=== PATIENT | female | born 1965 | race Caucasian/White ===

== ENCOUNTER 2023-06-26 20:03 | Emergency (ER) | payer MEDICARE, OTHER ==
[~2023-06-26] VITALS: Ht 168.9 cm; Wt 65.9 kg
[2023-06-26 20:06] VITALS: BP 134/76; TEMP 98.3; O2SAT 96
[2023-06-26] MEDS ORDERED: LEVO50TA5 PO (20:14)
[2023-06-26] MEDS ORDERED: OXYC-1 PO (20:14)
[2023-06-26] MEDS ORDERED: VENTAER INH (20:14)
[2023-06-26] MEDS ORDERED: ATOR40TA75 PO (20:14)
[2023-06-26] MEDS ORDERED: ADV250INH INH (20:14)
[2023-06-26] MEDS ORDERED: ZOLO100T PO (20:14)
[2023-06-26] MEDS ORDERED: methocarbamoL 750 MG TAB PO ONE (21:20)
[2023-06-26] MEDS ORDERED: METH-1165 PO (22:32)
== END 2023-06-26 22:50 | disposition home or self-care (01) ==
LOC: M ED 20:03
DX: M54.12 Radiculopathy, cervical region (principal); Z85.3 Personal history of malignant neoplasm of breast; M06.9 Rheumatoid arthritis, unspecified; M19.90 Unspecified osteoarthritis, unspecified site; F17.200 Nicotine dependence, unspecified, uncomplicated; Z79.899 Other long term (current) drug therapy; Z79.51 Long term (current) use of inhaled steroids

== ENCOUNTER → 2023-09-05 | Outpatient (CLI) | payer OTHER ==
[~2023-09-05] MED LIST: ADV250INH INH; ATOR40TA75 PO; LEVO50TA5 PO; METH-1165 PO; OXYC-1 PO; VENTAER INH; ZOLO100T PO
== END ==
LOC: M PLAIMG 12:10
PROVIDERS: ATTEND Orthopaedic Surgery
DX: M47.812 Spondylosis without myelopathy or radiculopathy, cervical region (principal)

== ENCOUNTER 2023-10-31 19:39 | Emergency (ER) | payer OTHER ==
[~2023-10-31] VITALS: Ht 168.9 cm; Wt 63.6 kg
[2023-11-01 00:32] VITALS: BP 139/83; TEMP 97.6; O2SAT 99
== END 2023-11-01 01:27 | disposition left against medical advice (07) ==
LOC: M ED 19:39 → EDBD 19:39 → M ED 11-01 01:27
DX: Z53.21 Procedure and treatment not carried out due to patient leaving prior to being seen by health care provider (principal)

== ENCOUNTER → 2023-12-29 | Outpatient (REF) | payer OTHER | LOC: M SFHCPLAZ 11:50 | PROVIDERS: ATTEND Family Medicine | DX: E03.9 Hypothyroidism, unspecified (principal) ==

== ENCOUNTER 2024-03-05 11:22 | Emergency (ER) | payer MEDICARE, OTHER ==
[~2024-03-05] VITALS: Ht 167.6 cm; Wt 68.2 kg
[2024-03-05] MEDS ORDERED: LEVO200T4 PO (16:38)
[2024-03-05] MEDS ORDERED: LEVO25TA5 PO (16:38)
[2024-03-05] MEDS ORDERED: AMLO1TAB25 PO (16:38)
[2024-03-05] MEDS: KETOROLAC 30 MG/ML 1ML VIAL IM ONE (17:22)
[2024-03-05 18:39] VITALS: BP 118/67; TEMP 98.7; O2SAT 98
[2024-03-05] MEDS ORDERED: NAPR-837 PO (19:32)
== END 2024-03-05 20:02 | disposition home or self-care (01) ==
LOC: M ED 11:22
DX: M16.12 Unilateral primary osteoarthritis, left hip (principal); M76.12 Psoas tendinitis, left hip; F17.290 Nicotine dependence, other tobacco product, uncomplicated; Z88.1 Allergy status to other antibiotic agents; Z79.51 Long term (current) use of inhaled steroids; Z79.899 Other long term (current) drug therapy
CPT/HCPCS: 72131; 72190; 96372; 99284; J1885

== ENCOUNTER 2024-05-06 19:09 | Emergency (ER) | payer MEDICARE ==
[~2024-05-06] VITALS: Ht 167.6 cm; Wt 75.3 kg
[~2024-05-06 19:09] MED LIST changes: +AMLO1TAB25 PO; +LEVO200T4 PO; +LEVO25TA5 PO; +NAPR-837 PO
[2024-05-06 21:54] VITALS: TEMP 97.8
[2024-05-06] MEDS: oxyCODONE 5MG TAB PO ONE (21:54)
[2024-05-06 22:07] LABS: BASO # 0.1 10^3/uL (0.0-0.2); EOS # 0.1 10^3/uL (0.0-0.5); EOS % 1.6 % (0.0-3.0); HEMATOCRIT 44.7 % (36.0-47.0); HEMOGLOBIN 14.9 g/dl (12.0-15.5); LYMPH # 1.5 10^3/uL (1.5-5.0); LYMPH % 18.8 % (24.0-44.0); MEAN CORPUSCULAR HEMOGLOBIN 29.9 pg (27.0-33.0); MEAN CORPUSCULAR HGB CONC 33.3 g/dl (32.0-36.5); MEAN CORPUSCULAR VOLUME 89.8 fl (80.0-96.0); MONO # 0.4 10^3/uL (0.0-0.8); MONO % 4.9 % (2.0-8.0); NEUTROPHILS # 5.9 10^3/uL (1.5-8.5); NEUTROPHILS % 73.3 % (36.0-66.0); PLATELET COUNT, AUTOMATED 288 10^3/uL (150-450); RED BLOOD COUNT 4.98 10^6/uL (4.00-5.40); WHITE BLOOD COUNT 8.1 10^3/uL (4.0-10.0)
[2024-05-06 22:30] VITALS: BP 131/77; O2SAT 93
[2024-05-06 22:41] LABS: BLOOD UREA NITROGEN 16 MG/DL (9-23); CALCIUM LEVEL 10.1 MG/DL (8.5-10.1); CARBON DIOXIDE LEVEL 26 MMOL/L (20-31); CHLORIDE LEVEL 109 MMOL/L (98-107); CREATININE FOR GFR 0.84 MG/DL (0.55-1.30); GLOMERULAR FILTRATION RATE > 60.0 (>51); GLUCOSE, FASTING 98 MG/DL (60-100); MAGNESIUM LEVEL 2.3 MG/DL (1.8-2.4); POTASSIUM SERUM 4.2 MMOL/L (3.5-5.1); SODIUM LEVEL 140 MMOL/L (136-145)
== END 2024-05-06 22:51 | disposition home or self-care (01) ==
LOC: EDBD 19:09 → M ED 19:09
DX: I10 Essential (primary) hypertension (principal); I45.10 Unspecified right bundle-branch block; E03.9 Hypothyroidism, unspecified; E78.5 Hyperlipidemia, unspecified; J45.909 Unspecified asthma, uncomplicated; Z88.1 Allergy status to other antibiotic agents; Z79.51 Long term (current) use of inhaled steroids; Z79.899 Other long term (current) drug therapy

== ENCOUNTER → 2024-05-25 | Outpatient (CLI) | payer MEDICARE ==
[2024-05-25 19:04] LABS: FREE T4 1.51 NG/DL (0.89-1.76); THYROID STIMULATING HORMONE 3.226 uIU/ML (0.55-4.78)
== END ==
LOC: M PLALAB 14:37
PROVIDERS: ATTEND Family Medicine
DX: E03.9 Hypothyroidism, unspecified (principal)

== ENCOUNTER → 2024-06-07 | Outpatient (CLI) | payer MEDICARE | LOC: M WHC 13:29 | PROVIDERS: ATTEND Family Medicine | DX: Z87.81 Personal history of (healed) traumatic fracture (principal); M81.0 Age-related osteoporosis without current pathological fracture ==

== ENCOUNTER 2024-08-08 19:50 | Emergency (ER) | payer MEDICARE ==
[~2024-08-08] VITALS: Ht 167.6 cm; Wt 72.5 kg
[2024-08-08 19:57] VITALS: TEMP 98.4; O2SAT 99
[2024-08-09] MEDS ORDERED: MELO7.5T35 PO (02:39)
[2024-08-09] MEDS: MELOXICAM (MOBIC) 7.5 MG TAB PO ONE (02:58)
[2024-08-09 03:19] VITALS: BP 167/100
== END 2024-08-09 03:20 | disposition home or self-care (01) ==
LOC: EDBD 19:50 → M ED 19:50
DX: S93.402A Sprain of unspecified ligament of left ankle, initial encounter (principal); X50.0XXA Overexertion from strenuous movement or load, initial encounter; M77.32 Calcaneal spur, left foot; J45.909 Unspecified asthma, uncomplicated; C50.919 Malignant neoplasm of unspecified site of unspecified female breast; M50.30 Other cervical disc degeneration, unspecified cervical region; Z87.891 Personal history of nicotine dependence; Y92.009 Unspecified place in unspecified non-institutional (private) residence as the place of occurrence of the external cause; Y93.89 Activity, other specified; Y99.9 Unspecified external cause status; Z79.52 Long term (current) use of systemic steroids; Z79.1 Long term (current) use of non-steroidal anti-inflammatories (NSAID); Z79.02 Long term (current) use of antithrombotics/antiplatelets; Z79.899 Other long term (current) drug therapy

== ENCOUNTER → 2024-12-19 | Outpatient (CLI) | payer MEDICARE, MEDICAID ==
[~2024-12-19] MED LIST changes: -ADV250INH INH; +ADVA1AER9 INH; +MELO7.5T35 PO
== END ==
LOC: M RAD 14:24
PROVIDERS: ATTEND Family Medicine
DX: F17.211 Nicotine dependence, cigarettes, in remission (principal); M81.0 Age-related osteoporosis without current pathological fracture; E78.2 Mixed hyperlipidemia; E03.9 Hypothyroidism, unspecified

== ENCOUNTER → 2024-12-19 | Outpatient (CLI) | payer MEDICARE, MEDICAID ==
[2024-12-19 15:47] LABS: ALBUMIN 3.5 G/DL (3.2-5.2); ALKALINE PHOSPHATASE 105 U/L (35-104); ALT/SGPT 62 U/L (7.0-40); AST/SGOT 31 U/L (<34); BILIRUBIN,TOTAL 0.6 MG/DL (0.3-1.2); BLOOD UREA NITROGEN 17 MG/DL (9-23); CALCIUM LEVEL 9.8 MG/DL (8.3-10.6); CARBON DIOXIDE LEVEL 28 MMOL/L (20-31); CHLORIDE LEVEL 105 MMOL/L (98-107); CHOLESTEROL LEVEL 150 MG/DL (<200); CHOLESTEROL RISK RATIO 4.47 (<5); CREATININE FOR GFR 0.89 MG/DL (0.55-1.30); GLOMERULAR FILTRATION RATE > 60.0 (>45); GLUCOSE, FASTING 122 MG/DL (74-106); HDL CHOLESTEROL 33.5 MG/DL (>40); LDL CHOLESTEROL 54.5 MG/DL (<100); NON-HDL-C 116.5 MG/DL; POTASSIUM SERUM 3.5 MMOL/L (3.5-5.1); PTH INTACT 96.6 PG/ML (18.5-88.0); SODIUM LEVEL 142 MMOL/L (136-145); TOTAL PROTEIN 6.7 G/DL (5.7-8.2); TRIGLYCERIDES LEVEL 310 MG/DL (<150)
[2024-12-19 15:49] LABS: THYROID STIMULATING HORMONE 0.127 uIU/ML (0.55-4.78); TOTAL 25(OH) VITAMIN D 14.3 NG/ML (20.0-100.0)
== END ==
LOC: M LAB 14:46
PROVIDERS: ATTEND Family Medicine
DX: M81.0 Age-related osteoporosis without current pathological fracture (principal); E78.2 Mixed hyperlipidemia; E03.9 Hypothyroidism, unspecified

== ENCOUNTER → 2025-02-18 | Outpatient (CLI) | payer MEDICARE, MEDICAID | LOC: M RAD 10:01 | PROVIDERS: ATTEND Nurse Practitioner Family | DX: M79.89 Other specified soft tissue disorders (principal) ==